=== PATIENT | female | born 1965 | race Caucasian/White ===

== ENCOUNTER 2019-12-27 17:17 | Outpatient (CLI) | payer SELFPAY ==
[2019-12-27 19:23] LABS: Estmated Average Glucose 171; Hemoglobin A1C 7.6 % (4.0-6.0)
[2019-12-27 22:55] LABS: Creatinine Urine, Random 26 mg/dL (28-217)
[2019-12-27 22:59] LABS: Microalbum Creatinine Ratio Ur 38 mg/dL (0-20); Microalbumin Random Urine 1 ug/dL (0-20)
[2019-12-28 03:40] LABS: Alanine Aminotransferase 17 U/L (0-33); Alkaline Phosphatase 75 IU/L (35-105); Anion Gap 17.2 (5-19); Aspartate Amino Transferase 16 U/L (0-32); Blood Urea Nitrogen 15 mg/dL (6-20); Calcium 9.3 mg/dL (8.5-10.5); Carbon Dioxide 25 mmol/L (22-29); Chloride 100 mmol/L (98-107); Globulin 3.1 g/dL (1.3-4.6); Glomerular Filtration Rate 104.6 mL/min (90-130); Glucose 289 mg/dL (65-115); Osmolality Calculated 293 mOsm/kg (285-295); Potassium 4.2 mmol/L (3.5-5.1); Sodium 138 mmol/L (136-145); Total Bilirubin 0.3 mg/dL (0.15-1.2); Total Protein 7.1 g/dL (6.6-8.7)
== END 2019-12-27 17:18 | disposition home or self-care (01) ==
PROVIDERS: Visit Provider General Practice
DX: E11.9 Type 2 diabetes mellitus without complications (principal)
CPT/HCPCS: 80053; 82044; 83036

== ENCOUNTER 2020-02-29 14:58 | Outpatient (CLI) | payer OTHER, SELFPAY ==
--- NOTE | 2020-02-29 15:09 | MM_ITS ---
WS: [id number] BILATERAL DIGITAL SCREENING MAMMOGRAPHY WITH CAD CLINICAL INFORMATION: SCREEN HISTORY: Screening mammogram. No current complaints. COMPARISON: None. TECHNIQUE: Bilateral CC and MLO views. FINDINGS: Scattered fibroglandular densities bilaterally. No suspicious focal mass, asymmetry, calcifications, or architectural distortion. No evidence of malignancy. Dystrophic calcifications. Lucent centered ca lcifications. MM/[place] [address] IMPRESSION: BI-RADS: 2-Benign FOLLOW UP: 1 Year Follow-up Recommend return to annual screening mammography.
== END 2020-02-29 14:59 | disposition home or self-care (01) ==
LOC: RADSHAW 15:05
DX: Z12.31 Encounter for screening mammogram for malignant neoplasm of breast (principal)
CPT/HCPCS: 77067

== ENCOUNTER 2020-05-27 10:15 | Outpatient (CLI) | payer OTHER, SELFPAY ==
--- NOTE | 2020-05-27 10:21 | XR_ITS ---
WS: [id number] LUMBAR SPINE: 3 VIEWS TECHNIQUE: AP, lateral and L5-S1 spot. HISTORY: LOW BACK PAIN COMPARISON: 04/14/2010 Very minimal LEFT convex curvature lumbar spine. Mild straightening of the posterior alignment. 1 to 2 mm retrolisthesis of L1-L4. Mild disc space narrowing and small endplate osteophytes at all levels. Mild facet joint arthritis at L4-5 and L5-S1. SI joints are symmetric bilaterally. No soft tissue abnormalities. Bilateral tubal ligation clips. XR/XR lumbar spine 2-3V* [id number] IMPRESSION: Mild multilevel spondylosis. No fractures.
--- NOTE | 2020-05-27 10:22 | XR_ITS ---
WS: [id number] RIGHT KNEE: 2 VIEW(S) TECHNIQUE: AP and lateral. HISTORY: RIGHT KNEE PAIN COMPARISON: None available. Lateral radiograph is rotated. Moderate to severe narrowing of the lateral compartment. Mild narrowin g of the medial and patellofemoral joint spaces. Hypertrophic osteophytes from the lateral joint line . There is also mild valgus deformity. Small suprapatellar effusion. No soft tissue abnormality. XR/XR knee RT 1-2V [id number] IMPRESSION: 1. Moderate to severe lateral compartment osteoarthritis. 2. Mild medial and patellofemoral joint arthritis.
== END 2020-05-27 10:16 | disposition home or self-care (01) ==
LOC: RAD 10:17
PROVIDERS: Visit Provider Dermatology
DX: M17.11 Unilateral primary osteoarthritis, right knee (principal); M47.816 Spondylosis without myelopathy or radiculopathy, lumbar region
CPT/HCPCS: 72100; 73560

== ENCOUNTER → 2020-07-16 17:13 | Outpatient (BNVA) | payer SELFPAY | PROVIDERS: Visit Provider Obstetrics & Gynecology | DX: Z01.812 Encounter for preprocedural laboratory examination (principal); N81.10 Cystocele, unspecified | CPT/HCPCS: 87635 ==

== ENCOUNTER → 2020-09-10 09:27 | Outpatient (BNVA) | payer SELFPAY | PROVIDERS: Visit Provider Obstetrics & Gynecology | DX: Z20.822 Contact with and (suspected) exposure to COVID-19 (principal); N81.2 Incomplete uterovaginal prolapse | CPT/HCPCS: 87635 ==

== ENCOUNTER 2020-09-16 10:50 | Observation (INO) | payer SELFPAY ==
[2020-09-12 11:56] VITALS: BMI 40.3
[2020-09-16] VITALS (14 sets, daily range): BP systolic 94–126; BP diastolic 55–84; PULSE 73–100; RESP 12–94; TEMP 36.3–37.3; O2SAT 82–100
[2020-09-16] MEDS: sodium chloride 0.9% 1,000 ML 30 ML IV (06:30)
--- NOTE | 2020-09-16 06:45 | P.HPUD_ITS ---
Surgery/Procedure H&P Update DATE OF PROCEDURE: September 16, 2020 DATE H&P PERFORMED: 09/10/20 H&P UPDATE INFORMATION: I have reviewed H&P completed within last 30 days, I have examined patient prior to procedure, No changes to prior documentation and H&P is in [facility] EMR on date indicated PREOP DIAGNOSIS: Uterovaginal prolapse PLANNED PROCEDURE: Operation Date: 09/16/20 07:00 Proposed Procedures p Total Vaginal Hysterectomy 54876 [id number] N81.10(Not Applicable) - Bruce Moeller MD s Salpingo-Oophorectomy (Vaginal)(Not Applicable) - Bruce Moeller MD s Sling(Not Applicable) - MD fredy Cr Ureterosacral Ligament Suspension(Not Applicable) - MD fredy Cr poss Anterior Repair Anterior Colporrhaphy(Not Applicable) - MD fredy Cr Posterior Repair Posterior Colporrhaphy(Not Applicable) - Bruce Moeller MD
[2020-09-16] MEDS: heparin 5,000 unit/mL INJ 1 mL 5000 UNIT SUBCUT ×2 (06:48→20:05)
--- NOTE | 2020-09-16 06:58 | P.ANESASSM_ITS ---
Pre-Anesthetic Assessment Pre-Anesthetic Assessment: Height/Weight: Height 1.68 m Weight 113.398 kg Temp Pulse Resp BP Pulse Ox 98.5 F 88 18 126/84 97 09/16/20 06:18 09/16/20 06:18 09/16/20 06:18 09/16/20 06:18 09/16/20 06:18 Preop Diagnosis: Uterovaginal prolapse Proposed Procedure: Operation Date: 09/16/20 07:00 Proposed Procedures p Total Vaginal Hysterectomy 09108 [id number] N81.10(Not Applicable) - MD fredy Cr Salpingo-Oophorectomy (Vaginal)(Not Applicable) - MD fredy Cr Sling(Not Applicable) - MD fredy Cr Ureterosacral Ligament Suspension(Not Applicable) - MD fredy Cr poss Anterior Repair Anterior Colporrhaphy(Not Applicable) - MD fredy Cr Posterior Repair Posterior Colporrhaphy(Not Applicable) - Bruce Moeller MD Familial anesthetic complications: none Was Beta Terry taken within 24 hours: N/A Was Clonidine taken within 24 hours: N/A Last intake: Intake Last Liquid Date 09/15/20 Last Liquid Time 22:00 Last Solid Date 09/15/20 Last Solid Time 21:00 Social: Social History: No alcohol and No tobacco Exam: Pre-Anes Outpt Exam: alert, oriented x 3, clear to auscultation bilaterally and regular rate & rhythm Airway: Cervical ROM: WNL MP: 3 Dentition: Other (poor dentition) CV/HEM: CV/HEM: HTN Comments: hx of PE, unknown etiology, on lovenox Metabolic: Metabolic: DM and Morbid obesity Anesthetic Plan: ASA status: 3 Anesthesia: General Risk of > 500 ml blood loss (7ml/kg in children): No PFSH Anesthesia PFSH: Medical History Diabetes Diagnosed in 2008 and controlled with medications. History of pulmonary embolism Had a PE in 2016-no known cause and has been on Xarelto since then. This is being managed by her primary care provider Hypertension Diagnosed in 2008 and symptoms are being managed by a primary care provider. No pertinent past medical history Denies asthma, seizures, DVT. PMD: Follows with the [facility] Surgical History Hx of tubal ligation (~2005) Done after the of her last child. Family History Mother Diabetes Heart disease Hypercholesteremia Hypertension Sister Diabetes Hypercholesteremia Hypertension Brother Diabetes Father Heart disease Denies family history of Colon cancer Ovarian cancer Breast cancer Uterine cancer Stroke Social History Additional social history: - Tobacco use: socially Alcohol use: socially Drug use: denies Data Anesthesia Cardiac Studies: No Data to Display
[2020-09-16 07:18] LABS: Glucose Point of Care 108 mg/dL (70-110)
[2020-09-16 07:25] LABS: Basophils % 0.5 %; Eosinophils # 0.1 10^3/uL (0.0-0.8); Eosinophils % 1.1 %; Hematocrit 50.8 % (37.0-47.0); Hemoglobin 15.9 g/dL (11.5-15.3); Lymphocytes # 1.6 10^3/uL (0.8-4.8); Lymphocytes % 29.1 %; Mean Corpuscular HGB Conc 31.3 g/dL (30.0-36.0); Mean Corpuscular Hemoglobin 29.2 pg (28.0-34.0); Mean Corpuscular Volume 93.2 fL (81-99); Mean Platelet Volume 11.5 fL (7.4-10.4); Monocytes # 0.3 10^3/uL (0.2-0.9); Monocytes % 5.1 %; Nucleated Red Blood Cells % 0 %; Platelet Count 224 10^3/cmm (130-400); Red Blood Count 5.45 10^6/uL (4.1-5.3); Red Cell Distribution Width 14.3 % (12.1-15.1); White Blood Count 5.5 10^3/uL (4.0-10.0)
[2020-09-16 07:41] LABS: Alanine Aminotransferase 25 U/L (0-33); Albumin Level 4.3 g/dL (3.5-5.2); Alkaline Phosphatase 81 IU/L (35-105); Blood Urea Nitrogen 15 mg/dL (6-20); Calcium 9.6 mg/dL (8.5-10.5); Carbon Dioxide 28 mmol/L (22-29); Chloride 100 mmol/L (98-107); Globulin 3.2 g/dL (1.3-4.6); Glomerular Filtration Rate 104.2 mL/min (90-130); Glucose 108 mg/dL (65-115); Osmolality Calculated 289 mOsm/kg (285-295); Sodium 139 mmol/L (136-145); Total Bilirubin 0.5 mg/dL (0.15-1.2); Total Protein 7.5 g/dL (6.6-8.7)
[2020-09-16 07:46] LABS: Anion Gap 15.4 (5-19); Potassium 4.4 mmol/L (3.5-5.1)
[2020-09-16 07:47] LABS: Aspartate Amino Transferase 31 U/L (0-32)
[2020-09-16] MEDS: vasopressin 20 unit/mL INJ INJECTION (07:53)
--- NOTE | 2020-09-16 10:01 | P.OP_ITS ---
Operative Report Date of procedure: September 16, 2020 OPERATIVE REPORT Date of surgery:09/16/20 Date of dictation: 09/16/2020 Preoperative diagnosis: Uterovaginal prolapse Postoperative diagnosis/findings: Grade 3 cystocele and uterine prolapse, grade 1 rectocele, wide enteritis, 8 weeks size midposition uterus, mobile, nontender, normal ovaries and tubes bilaterally. Fallopian tubes bilaterally show signs of Filshie clips. Procedure done: Total vaginal hysterectomy, bilateral salpingo-oophorectomy Specimens removed/disposition of specimens: Uterus, bilateral tubes and ovaries. Surgeon: Dr. Jase Rodriguez Public Information Specialist: Lisandra Condon Anesthesia:General endotracheal tube anesthesia Estimated blood loss: 300 ml Intravenous fluids: See operative report for details of procedure Urine output: 200 ml of blue tinged urine at end of procedure Medications: As per anesthesia records Complications: None, patient was taken to the recovery room in a stable condition PROCEDURE: After consents were obtained, she was taken to the operating room where she was placed under general endotracheal tube anesthesia without any difficulty. She was placed supine on the table in lithotomy position. Her legs were placed in stirrups and care was taken to avoid pressure points. Exam under anesthesia revealed findings noted above. She was then prepped and draped in usual sterile fashion. Grady Catheter was placed. Patient's legs were raised, weighted speculum placed and cervix was grasped on the anterior and posterior lips with single-toothed tenaculum. 4 Units of Pitressin diluted in 10 mL of saline was injected around the cervix for hydrodissection circumferentially. A scalpel was used to make an incision starting posteriorly and then extending anteriorly around the cervix. Castellanos scissors was then used to separate the overlying tissue from the cervix. The overlying tissue was also pushed back bluntly using a 4 x 4 gauze. Attention was turned posteriorly where the posterior cul-de-sac was sharply entered . No lesions noted in the posterior cul-de-sac. Long weighted retractor was placed in the posterior cul-de-sac. Antoni-Steele clamps were used first on the right and then the left uterosacral ligaments. This process was repeated again proceeding up the cervix. The bladder was held up, peritoneum was identified and intraperitoneal entry anteriorly was made. A vaginal retractor was placed into the peritoneum thus protecting the bladder from site of surgery. Care was taken to stay medial. Throughout this time there was backbleeding from the uterus as it was very vascular. The remaining portions of the broad ligament were serially clamped, cut, and suture ligated with 0 Vicryl suture bilaterally until the area of the ovarian ligament and fallopian tube was reached. Once clamps were placed completely across the cornua of the uterus, this last pedicle was cut and the uterus was then removed. The pedicles were inspected and noted to be hemostatic. The ovaries and tubes were inspected and appeared normal. The IP ligament was easily visualized and no adhesions were noted. The tube showed signs of the Filshie clip. Antoni-Steele clamps were placed across the IP ligament taking care to stay as close to the uterus as possible and avoid the sidewall. This was done first on the left and then on the right side without any difficulty. The bilateral tubes and ovaries were removed and each pedicle was first suture ligated and then free tied and good hemostasis was noted bilaterally. Surgery was then turned over to Dr. Moeller who performed uterosacral ligament suspension bilaterally, posterior colporrhaphy and single incision sling. Please refer to his operative report for details of procedure. Once uterosacral ligament suspension was performed the cystocele was inspected and it was noted to be mainly a paravaginal defect and not so much a central defect and cystocele had resolved from grade 3 to grade 1-2 under anesthesia and decision was made to not perform anterior repair at this time. 1 inch vaginal packing with lubrication was placed into the vagina. A Grady catheter was kept in place. The patient was extubated without any difficulty and taken to the recovery room in a stable condition. This documentation was created by [employer] food counter attendant software (known for inherent food counter attendant error). Every effort was made to assure accuracy of food counter attendant. Any obvious errors or omissions should be clarified with the author of the document. Pre-op Diagnosis: Uterovaginal prolapse
--- NOTE | 2020-09-16 10:39 | P.OP_ITS ---
Operative Report Date of procedure: September 16, 2020 Pre-op Diagnosis: Incomplete uterovaginal prolapse Post-op Diagnosis: Incomplete uterovaginal prolapse, Urethral hypermobility Procedure Done: Intraperitoneal colpopexy, vaginal approach (uterosacral ligament suspension), Single incision suburethral sling, Perineorrhaphy, Cystoscopy Anesthesia: General Estimated blood loss (mL): 200 (Total) IV fluids (mL): 1,400 (Total) Complications: None Findings: Patient had third-degree uterine prolapse with third-degree cystocele and second-degree rectocele with deficient perineum. She also had hypermobility of the urethra. Brief History: Patient is a 55-year-old female 7, Para 6-0-1-6, LMP: 2018 (postmenopausal). She initially presented to Dr. Rodriguez due to prolapse complaints. She was diagnosed incomplete uterovaginal prolapse with second to third-degree uterine prolapse, third-degree cystocele, and first to second-degree high rectocele with hypermobility of the urethra and deficient perineum. Dr. Rodriguez had been planning on performing a total vaginal hysterectomy, bilateral salpingo- oophorectomy, and possible anterior repair with plan to coordinate repair of the rest of the prolapse with me. From my portion plan was to perform a uterosacral ligament suspension and then see if anterior and/or posterior repair would be needed. I would then also be performing a urethral sling. This has been discussed with patient she is presenting for surgery at this time. Procedure: Patient was taken to the operating room where general anesthesia was obtained. She had been prepped and draped in usual sterile fashion dorsal supine position with legs in Adelfo style stirrups. Sequential compression boots had been placed. Grady catheter was in place. Dr. Rodriguez performed a total vaginal hysterectomy with bilateral salpingo- oophorectomy. At this point she turned the case over to me. Please see her dictation regarding the hysterectomy. The cuff was open at this time. The right uterosacral ligament was identified. 0 Ethibond suture was placed high into the uterosacral ligament on the right side. I was able to apply good tension to the suture to confirm placement in the ligament. The left uterosacral ligament was identified. 0 Ethibond suture was placed high into the uterosacral ligament on the left side. I was again able to apply good tension to the suture to confirm placement in the ligament. Care had been taken not to incorporate the ureters or bowel into the suture placement. Grady catheter was removed and cystoscopy was performed. Bladder was thoroughly inspected with no masses noted. No bladder lacerations or suture material was noted within the bladder. Both ureters were noted to be effluxing urine well. Patient had been given IV indigo carmine for confirmation of ureteral functioning. Bladder was drained and Grady catheter was reinserted. The 0 Ethibond suture was incorporated into the vaginal cuff on the ipsilateral sides to the suture with one end of the suture passed through the anterior cuff and the other end of the suture through the posterior cuff. The vaginal cuff was closed in a horizontal fashion with interrupted stitches of 0 Vicryl suture. The Ethibond sutures were then tied which elevated the vaginal cuff well. The anterior vaginal wall was inspected. The cystocele had been significantly reduced to the point that it was felt that the anterior repair would not be necessary. However, due to the hypermobility of the urethra previously noted, decision was made to go ahead and proceed with the urethral sling. Under the urethra, the skin was injected with dilute Pitressin solution. An incision was made with a knife under the urethra parallel to the urethra. Edges of the skin was grasped and the skin was dissected away from the urethra directed towards the pubic rami bilaterally. Using a solyx single incision sling, the sling was passed through the periurethral tissue and directed behind the pubic rami at approximately 45 degree angle to the urethra. This was placed at the mid urethral level. On the contralateral side the sling was passed through the periurethral tissue at approximately 45 degree angle to the urethra and passed behind the pubic rami. She had adequate elevation and stabilization of the urethra with this. Grady catheter was removed and cystoscopy was performed. Both ureters were again noted to be effluxing urine and indigo carmine dye well. The sling was not present within the bladder or the urethra. Bladder was drained and Grady catheter reinserted. The vaginal mucosa was closed using 3-0 Vicryl suture in a running locking fashion. Patient had a large gaping perineum with at least a 4 finger breath with to the vaginal opening. The rectocele was essentially resolved with the vault suspension. Due to the gaping perineum, a perineorrhaphy was performed. The perineum was injected with dilute Pitressin solution. The skin at the perineum was excised. The skin edges were slightly undermined to allow good mobility of the skin over the perineum. Starting on the vaginal side, using 3-0 Vicryl suture, the skin on the vaginal side of the perineum was brought together in a running locking fashion. At the hymenal ring the suture was then held. The perineal body was then further built-up with interrupted stitches of 2-0 Vicryl suture. Using the previously held 3-0 Vicryl suture, a transition stitch was placed and the bulbocavernosus muscles were then incorporated in the stitch and tied in the midline. The superficial portion of the perineum was reapproximated using 3-0 Vicryl suture in a running fashion. Skin was reapproximated using 3-0 Vicryl suture in a subcuticular fashion. This built up the perineum well. The vaginal opening was approximately 2-1/2 fingerbreadths at the end of the procedure. Vagina was packed with 1 inch Nu Gauze. Patient tolerated procedures well. Sponge needle and instrument counts were correct. Drains: Grady catheter Postoperative status: Patient was transferred recovery room in satisfactory condition.
--- NOTE | 2020-09-16 10:55 | PC.NURSE ---
Pt to room OB 11 via gurney. Pt transferred to bed by standing and pivoting. Pt reporting left hip pain. Nurse assisted pt into bed and helped with position.
[2020-09-16] MEDS: HYDROcodone-acetaminophen 5-325 mg Tablet PO ×2 (14:17→21:08)
[2020-09-16] MEDS: dextrose 5%-lactated ringers 1,000 ML 125 ML IV (15:08)
--- NOTE | 2020-09-16 19:06 | ANE.PACU2 ---
Inpatient post-anesthesia follow up: Airway intact: Yes Vital signs: Temperature 97.7 F Pulse Rate 100 Respiratory Rate 94 Blood Pressure 126/73 Pulse Oximetry 94 Oxygen Delivery Me thod Room Air Oxygen Flow Rate 1 Fraction of Inspir ed Oxygen Hydration adequate: Yes Nausea and vomiting: No Pain level: 2 Mental status: Baseline
[2020-09-17] MEDS: dextrose 5%-lactated ringers 1,000 ML 125 ML IV (00:03)
[2020-09-17] MEDS: HYDROcodone-acetaminophen 5-325 mg Tablet PO ×3 (03:09→14:13)
[2020-09-17 04:00] VITALS: BP 90/60; PULSE 93; RESP 15; TEMP 37; O2SAT 96
[2020-09-17] MEDS: heparin 5,000 unit/mL INJ 1 mL 5000 UNIT SUBCUT ×2 (04:05→12:11)
--- NOTE | 2020-09-17 05:00 | PC.NURSE ---
Vaginal packing removed per physician's order. Tolerated well.
[2020-09-17 05:20] LABS: Hematocrit 39.6 % (37.0-47.0); Hemoglobin 12.3 g/dL (11.5-15.3); Mean Corpuscular HGB Conc 31.1 g/dL (30.0-36.0); Mean Corpuscular Volume 93.4 fL (81-99); Mean Platelet Volume 10.8 fL (7.4-10.4); Platelet Count 187 10^3/cmm (130-400); Red Blood Count 4.24 10^6/uL (4.1-5.3); Red Cell Distribution Width 14.4 % (12.1-15.1); White Blood Count 6.1 10^3/uL (4.0-10.0)
--- NOTE | 2020-09-17 05:50 | PC.NURSE ---
Physician at bedside explaining surgery and answering uestions.
--- NOTE | 2020-09-17 07:45 | PC.NURSE ---
This nurse helped pt out of bed at this time to ambulate with pt. Pt was able to get out of bed on her own. Pt reports her pain 5. Pt ambulated from room 11 to room 9 and turned around and went back to her room. Pt reported she felt like she was having a hard time breathing. This nurse instructed pt she could pull her mask down if she needed to. Pt went back into room and wanted to try to void again, but was unsuccessful. This nurse discussed with pt that when Dr. Rodriguez told her she needed to walk 10 laps, Dr. Rodriguez meant 10 laps around the unit. Pt decided she would ambulate again and this nurse showed her where she could ambulate in the [place]. This nurse educated pt to take her time and that she didn't have to do all 10 laps at one time. Pt verbalized understanding.
--- NOTE | 2020-09-17 08:25 | PC.NURSE ---
Call to Dr. Rodriguez to report that pt IV is infiltrated. Pt has voided once 200 mL and her post void residual was 140 mL. Pt tolerated her full liquid diet well. Reported the discussed with pt about walking 10 laps around nurses station. Dr. Rodriguez reported pt does not have to have a new IV placed. Dr. Rodriguez gave orders to do 2 more PVR, and encourage pt to ambulate. If pt needs to do one lap an hour, that would be acceptable.
[2020-09-17] MEDS: docusate sodium 100 mg Capsule PO (09:13)
[2020-09-17 09:18] VITALS: BP 94/62; PULSE 92; RESP 16; TEMP 36.8; O2SAT 96
[2020-09-17 10:21] LABS: Glucose Point of Care 141 mg/dL (70-110)
[2020-09-17] MEDS: simethicone 80 mg Chew PO (11:48)
[2020-09-17] MEDS: ibuprofen 800 mg tablet PO (11:48)
--- NOTE | 2020-09-17 11:53 | PC.NURSE ---
Call to Dr. Rodriguez to report last two PVRs. Pt voided 400mL and had 200mL residual, and pt voided 800mL and had 60mL residual. Pt has ambulated 3 laps around the nurses station. Pt did pass gas this morning but reports It was hardly anything . Received order to measure one more PVR and call with an update at 1600.
[2020-09-17 15:18] LABS: Glucose Point of Care 156 mg/dL (70-110)
--- NOTE | 2020-09-17 16:59 | PC.NURSE ---
Dr. Rodriguez called at this time for an update on pt. This nurse reported that pt voided another 600mL with a PVR of 50mL. Pt has walked 10 laps around the nurses station and pt has passed more gas and is tolerating regular diet well. Dr. Rodriguez reported she would be putting in discharge orders in. Dr. Rodriguez would like the pt to be educated to get up and try to void every 3 hours for the first 48 hours at home.
--- NOTE | 2020-09-17 17:12 | P.DS_ITS ---
Discharge Providers Date of Admission: 09/16/20 10:50 Date of Discharge: September 17, 2020 Attending Provider at Admission: Jase Basurto MD Attending Provider at Discharge: Jase Basurto MD Diagnosis at admission: Grade 3 uterovaginal prolapse Diabetes Chronic hypertension History of pulmonary embolism on blood thinners Diagnosis at discharge Status post surgery on 09/16/2020--vaginal hysterectomy, bilateral salpingo- oophorectomy, uterosacral ligament suspension, suburethral sling placement, perineorrhaphy. Diabetes Chronic hypertension History of pulmonary embolism on heparin in the hospital transitioned back to Located Within [facility] course: Patient presented on 09/16/2020 for scheduled surgery. She had no new complaints. She last taken Lovenox the day before surgery. She had no questions or concerns. She underwent an uncomplicated surgery as documented above. She did well on postoperative day 0 and was ambulating well, tolerating clear liquid diet. Pain was well-controlled with by mouth and IV pain medication. She denied nausea, vomiting, fever, chills, shortness of breath, leg pain. She had minimal vaginal bleeding. Grady catheter was kept overnight and she had adequate urine output. On postoperative day #1 she continued to do well with stable vital signs and stable hemoglobin at 12. Grady catheter was removed and patient was able to void with minimal residual noted on bladder scan. She ambulated well started passing flatus and then tolerated a regular diet. She was discharged home on postoperative day #1 in a stable condition. Warning signs for wound infection, cuff infection, DVT/PE were reviewed with her. Post surgical activity restrictions were also reviewed with her at all her questions were answered to her satisfaction. This documentation was created by [employer] electrical assembler software (known for inherent electrical assembler error). Every effort was made to assure accuracy of electrical assembler. Any obvious errors or omissions should be clarified with the author of the document. Reason for Visit Reason for Visit: vaginal prolapse Physical Exam Urinary Catheter Management^: Grady: Cath Placed During This Visit: yes Urinary Catheter Date of Insertion: 09/16/20 Urinary Catheter Time of Insertion: 07:36 Discharge Data Data Completed and Pending: Pending at discharge Category Date Time Status Pathology: Surgic al [PTH] Routine Pth 09/16/20 11:44 Received Labs from last 24 hours 09/17/20 09/17/20 09/17/20 15:12 10:17 05:12 WBC 6.1 RBC 4.24 Hgb 12.3 Hct 39.6 MCV 93.4 MCH 29.0 MCHC 31.1 RDW 14.4 Plt Count 187 MPV 10.8 H POC Glucose 156 H 141 H Vitals: Last Vital Signs Temp 98.3 F 09/17/20 09:18 Pulse 92 09/17/20 09:18 Resp 16 09/17/20 09:18 BP 94/62 09/17/20 09:18 Pulse Ox 96 09/17/20 09:18 Discharge Plan Discharge Patient Disposition: Home Condition: Stable Prescriptions: New hydrocodone-acetaminophen 5-325 mg tablet 1 tab PO Q6H Qty: 25 RF: 0 docusate sodium 100 mg Capsule 100 mg PO BID PRN (Reason: constipation) Qty: 30 RF: 0 Continued metformin 1,000 mg tablet 1,000 mg PO BID RF: 0 Januvia 100 mg tablet 100 mg PO DAILY RF: 0 Invokana 300 mg tablet 300 mg PO DAILY RF: 0 lisinopril 5 mg tablet 5 mg PO DAILY RF: 0 Xarelto 20 mg tablet 20 mg PO DAILY RF: 0 naproxen sodium [Aleve] 220 mg capsule 220 mg PO BID PRN (Reason: Pain) RF: 0 acetaminophen [Tylenol] 325 mg tablet 325 mg PO QID PRN (Reason: Pain) RF: 0 glucosamine HCl 500 mg tablet 500 mg PO ONCE RF: 0 omega-3 fatty acids [Fish Oil Concentrate] 1,000 mg capsule 1,000 mg PO DAILY RF: 0 magnesium oxide 400 mg (241.3 mg magnesium) tablet 400 mg PO BID RF: 0 ascorbate calcium (vitamin C) 500 mg tablet 500 mg PO DAILY RF: 0 Bydureon 2 mg/0.65 mL pen injector 2 mg SUBCUT Q7D RF: 0 aspirin 81 mg Tablet 81 mg PO DAILY RF: 0 enoxaparin [Lovenox] 40 mg/0.4 mL Syringe 40 mg SUBCUT Q12H RF: 0 potassium 99 mg Tablet PO DAILY RF: 0 Discharge Orders: Discharge Order (Routine); Ordered 09/17/20 Ordered By: Jase Basurto Referrals: Jase Basurto MD [Physician] - 09/29/20 3:00 pm (* Your incision check is on 09/29/2020 at 3:00pm * Your follow up appointment is on 10/27/2020 at 2:45pm.) Patient Instructions: Vaginal Hysterectomy (DC), Bladder Sling Procedures (DC), OB Abdominal Surgery - [facility], OB Discharge Report, OB Food/Drug Interaction Guide Activity Restrictions/Additional Instructions: Pelvic rest for 6 weeks, no heavy lifting for 6 weeks. For the first 48 hours, get up and try to urinate every three hours, whether you feel like you need to go or not. This will prevent your bladder from getting too full and not emptying completely. Discharge Attestations Time Spent in Discharge Care*: greater than 30 min Quality Metrics Clinical Quality Measures During this hospital stay, did patient experience: None Coding Level of Care Code Acute Chg FW DC note
--- NOTE | 2020-09-17 18:07 | PC.NURSE ---
Call to Dr. Rodriguez to verify order. Order was to continue taking lovenox and continue taking xarelto. Dr. Rodriguez reported that was a mistake and she did not want pt to continue taking lovenox.
[2020-09-17 18:15] VITALS: BP 128/81; PULSE 85; RESP 16; TEMP 36.7; O2SAT 97
== END 2020-09-17 18:30 | disposition home or self-care (01) ==
LOC: OBGYN 10:51
PROVIDERS: Obstetrics & Gynecology; Admitting Provider Obstetrics & Gynecology; Visit Provider Obstetrics & Gynecology
PROC: (CPT 57260; principal; 2020-09-16 07:00)
PROC: (CPT 58720; 2020-09-16 07:00)
PROC: (CPT 57288; 2020-09-16 07:00)
PROC: (CPT 57283; 2020-09-16 07:00)
PROC: 0TJB8ZZ Inspection of Bladder, Via Natural or Artificial Opening Endoscopic (ICD-10-PCS; CPT 52000; 2020-09-16 07:00)
PROC: 0HQ9XZZ Repair Perineum Skin, External Approach (ICD-10-PCS; CPT 57260; 2020-09-16 07:00)
DX: N81.3 Complete uterovaginal prolapse (principal); I10 Essential (primary) hypertension; Z86.711 Personal history of pulmonary embolism; E11.9 Type 2 diabetes mellitus without complications; E66.01 Morbid (severe) obesity due to excess calories; Z68.41 Body mass index [BMI] 40.0-44.9, adult
CPT/HCPCS: 57260; 57283; 57288; 58262; 36415; 36416; 51798; 80053; 82962; 85025; 85027; 86850; 86900; 88305; 96365; 96372; C1771; G0378; J0690; J1100; J1170; J1200; J1644; J2405; J2704; J3010; J3490; J7030

== ENCOUNTER → 2020-10-23 00:01 | Outpatient (BNVA) | payer SELFPAY | PROVIDERS: Visit Provider Obstetrics & Gynecology | DX: R33.9 Retention of urine, unspecified (principal) | CPT/HCPCS: 87086 ==

== ENCOUNTER → 2021-02-25 09:09 | Outpatient (BNVA) | payer SELFPAY | PROVIDERS: Visit Provider Obstetrics & Gynecology | DX: R39.15 Urgency of urination (principal); R30.0 Dysuria | CPT/HCPCS: 81000; 87086 ==

== ENCOUNTER → 2021-09-24 11:35 | Outpatient (BNVA) | payer MEDICAID, SELFPAY | PROVIDERS: PCP Family Medicine; Visit Provider Family Medicine | DX: N39.3 Stress incontinence (female) (male) (principal); E11.9 Type 2 diabetes mellitus without complications; R33.9 Retention of urine, unspecified; M17.11 Unilateral primary osteoarthritis, right knee | CPT/HCPCS: 81000 ==

== ENCOUNTER 2021-09-30 10:25 | Outpatient (CLI) | payer MEDICAID, SELFPAY ==
--- NOTE | 2021-09-30 10:30 | MM_ITS ---
WS: [id number] BILATERAL SCREENING 3D TOMOSYNTHESIS DIGITAL MAMMOGRAM WITH CAD HISTORY: SCREEN COMPARISON: 02/29/2020 and 11/12/2016 Bilateral CC and MLO views submitted. Computer aided detection analyzed. Breast composition: There are scattered areas of fibroglandular density. No suspicious masses, microc alcifications or architectural distortion. Benign scattered calcifications in each breast. MM/[place] [id number] IMPRESSION: BI-RADS: 2-Benign FOLLOW UP: 1 Year Follow-up
== END 2021-09-30 10:26 | disposition home or self-care (01) ==
LOC: RAD 10:27
PROVIDERS: PCP Family Medicine; Visit Provider Family Medicine
DX: Z12.31 Encounter for screening mammogram for malignant neoplasm of breast (principal)
CPT/HCPCS: 77063; 77067

== ENCOUNTER 2021-10-07 07:44 | Day surgery (SDC) | payer MEDICAID, SELFPAY ==
[2021-10-05 13:28] VITALS: BMI 40.3
--- NOTE | 2021-10-07 08:56 | P.HP_ITS ---
Same Day Surgery H&P Indication for Procedure/HPI DATE OF PROCEDURE: October 07, 2021 CHIEF COMPLAINT/INDICATIONFOR SURGICAL PROCEDURE: screening PREOP DIAGNOSIS: diagnostic PLANNED PROCEDURE: Operation Date: 10/07/21 09:30 Proposed Procedures p Colonoscopy 20578/z12.11(Not Applicable) - Crispin Hernandez MD Medications/Allergies* Home Medications Medication Instructions Recorded Confirmed Type ascorbate calcium (vitamin C) 500 500 mg PO DAILY 05/21/20 10/07/21 History mg tablet canagliflozin 300 mg tablet 300 mg PO DAILY 05/21/20 10/07/21 History (Invokana) glucosamine HCl 500 mg tablet 500 mg PO DAILY tab 05/21/20 10/07/21 History lisinopril 5 mg tablet 5 mg PO DAILY 05/21/20 10/07/21 History omega-3 fatty acids 1,000 mg 1,000 mg PO DAILY 05/21/20 10/07/21 History capsule (Fish Oil Concentrate) rivaroxaban 20 mg tablet (Xarelto) 20 mg PO DAILY 05/21/20 10/07/21 History sitagliptin 100 mg tablet (Januvia) 100 mg PO DAILY 05/21/20 10/07/21 History exenatide microspheres 2 mg/0.65 2 mg SUBCUT Q7D 07/04/20 10/07/21 History mL subcutaneous pen injector (Bydureon) aspirin 81 mg tablet 81 mg PO DAILY 07/14/20 10/07/21 History potassium 99 mg tablet 99 mg PO DAILY 09/16/20 10/07/21 History magnesium oxide 400 mg (241.3 mg 800 mg PO DAILY tab 11/10/20 10/07/21 History magnesium) tablet cyanocobalamin (vitamin B-12) 50 500 mcg PO DAILY 08/20/21 10/07/21 History mcg tablet (Vitamin B-12) zinc 50 mg tablet 50 mg PO DAILY 08/20/21 10/07/21 History Allergies/Adverse Reactions Allergy/AdvReac Type Severity Reaction Status Date / Time Penicillins Allergy unknown Verified 10/07/21 08:24 reaction--mother told her she was allergic Pertinent History/Comorbid Conditions* Medical History (Updated 09/24/21 @ 11:43 by Remedios Russ DO) Diabetes Diagnosed in 2008 and controlled with medications. History of pulmonary embolism Had a PE in 2016-no known cause and has been on Xarelto since then. This is being managed by her primary care provider. Saddle embolism. Hypertension Diagnosed in 2008 and symptoms are being managed by a primary care provider. Surgical History (Updated 10/24/20 @ 19:44 by Bruce Moeller MD) Hx of tubal ligation (~2005) Done after the of her last child. Status post hysterectomy (09/16/20) TVH, BSO, USLS, SIS sling, perineorrhaphy. Performed by Dr. Rodriguez and Dr. Moeller at [facility] in [place], [place]. Family History (Updated 05/21/20 @ 09:12 by Domitila Christianson) Diabetes Mother Sister Brother Heart disease Mother Father Hypercholesteremia Mother Sister Hypertension Mother Sister Denies family history of Colon cancer Ovarian cancer Breast cancer Uterine cancer Stroke Social History Smoking and tobacco status: never smoked Alcohol intake: current Alcohol intake frequency: holidays/special occasions only Pertinent Exam Findings alert, oriented x 3 and regular rate & rhythm Recommendations Surgery/Procedure today Coding Level of Care Code Acute Director Employee Communications for Tobin Álvarez
[2021-10-07 08:58] VITALS: BP 146/83; PULSE 75; RESP 16; TEMP 36.5; O2SAT 97
[2021-10-07] MEDS: sodium chloride 0.9% 1,000 ML 30 ML IV (09:02)
--- NOTE | 2021-10-07 09:12 | ANES.PREANE2 ---
Documented by User: El Street Jr, TRIAGE NURSE 10/07/21 09:15 Pre-Anesthetic Assessment Height/Weight: Height 1.68 m Weight 113.398 kg Temp Pulse Resp BP Pulse Ox 97.7 F 75 16 146/83 97 10/07/21 08:58 10/07/21 08:58 10/07/21 08:58 10/07/21 08:58 10/07/21 08:58 Preop Diagnosis: diagnostic Operation Date: 10/07/21 09:30 Proposed Procedures p Colonoscopy 80958/z12.11(Not Applicable) - Crispin Hernandez MD Was Beta Terry taken within 24 hours: N/A Was Clonidine taken within 24 hours: N/A Last intake: Intake Last Liquid Date 10/06/21 Last Liquid Time 21:00 Last Solid Date 10/05/21 Last Solid Time 18:30 Social No alcohol and No tobacco Exam alert, oriented x 3, clear to auscultation bilaterally and regular rate & rhythm Airway Submandibular: within normal limits Cervical ROM: within normal limits Mallampati: Class II Dentition: loose Comments: Comments: several missing History/ROS No significant history except as noted and No significant complaints Pulmonary Hx PE CV/HEM Hypertension None reported Hepatic None reported GI None reported Metabolic Diabetes Mellitus [facility] None reported Neuropsych None reported Anesthetic Plan ASA status: 3 Anesthesia: MAC Risk of > 500 ml blood loss (7ml/kg in children): No Medications/Allergies Home Medications Medication Instructions Recorded Confirmed Last Taken Type ascorbate calcium (vitamin C) 500 500 mg PO DAILY 05/21/20 10/07/21 10/06/21 History mg tablet canagliflozin 300 mg tablet 300 mg PO DAILY 05/21/20 10/07/21 10/06/21 History (Invokana) glucosamine HCl 500 mg tablet 500 mg PO DAILY tab 05/21/20 10/07/21 10/06/21 History lisinopril 5 mg tablet 5 mg PO DAILY 05/21/20 10/07/21 10/06/21 History omega-3 fatty acids 1,000 mg 1,000 mg PO DAILY 05/21/20 10/07/21 10/05/21 History capsule (Fish Oil Concentrate) rivaroxaban 20 mg tablet (Xarelto) 20 mg PO DAILY 05/21/20 10/07/21 10/04/21 History sitagliptin 100 mg tablet (Januvia) 100 mg PO DAILY 05/21/20 10/07/21 10/05/21 History exenatide microspheres 2 mg/0.65 2 mg SUBCUT Q7D 07/04/20 10/07/21 10/04/21 History mL subcutaneous pen injector (Bydureon) aspirin 81 mg tablet 81 mg PO DAILY 07/14/20 10/07/21 10/05/21 History potassium 99 mg tablet 99 mg PO DAILY 09/16/20 10/07/21 10/06/21 History magnesium oxide 400 mg (241.3 mg 800 mg PO DAILY tab 11/10/20 10/07/21 10/06/21 History magnesium) tablet cyanocobalamin (vitamin B-12) 50 500 mcg PO DAILY 08/20/21 10/07/21 10/06/21 History mcg tablet (Vitamin B-12) zinc 50 mg tablet 50 mg PO DAILY 08/20/21 10/07/21 10/06/21 History diclofenac sodium 3 % topical gel 1 applic TOPICAL BID #100 g 09/24/21 10/07/21 Unknown Rx insulin detemir U-100 100 unit/mL 10 unit (0.1 mL) SUBCUT DAILY #15 09/24/21 10/07/21 10/06/21 Rx (3 mL) subcutaneous pen (Levemir ml FlexTouch U-100 Insulin) oxybutynin chloride 5 mg tablet 10 mg PO BID #120 tab 09/29/21 10/07/21 10/06/21 Rx Allergies Allergy/AdvReac Type Severity Reaction Status Date / Time Penicillins Allergy unknown Verified 10/07/21 08:24 reaction--mother told her she was allergic Current Medications Generic Name Dose Route Start Last Admin Trade Name Freq PRN Reason Stop Dose Admin Sodium Chloride 1,000 mls @ 30 mls/hr 10/07/21 08:15 10/07/21 09:02 Sodium Chloride 0.9% IV 10/08/21 08:14 30 mls/hr .Q24H JUSTYNA Administration PFSH Anesthesia Medical History (Updated 09/24/21 @ 11:43 by Remedios Russ DO) Diabetes Diagnosed in 2008 and controlled with medications. History of pulmonary embolism Had a PE in 2016-no known cause and has been on Xarelto since then. This is being managed by her primary care provider. Saddle embolism. Hypertension Diagnosed in 2008 and symptoms are being managed by a primary care provider. Surgical History (Updated 10/07/21 @ 09:40 by Crispin Hernandez MD) Hx of tubal ligation (~2005) Done after the of her last child. Status post colonoscopy (10/07/21) Status post hysterectomy (09/16/20) TVH, BSO, USLS, SIS sling, perineorrhaphy. Performed by Dr. Rodriguez and Dr. Moeller at [facility] in [place], [place]. Family History Mother Diabetes Heart disease Hypercholesteremia Hypertension Sister Diabetes Hypercholesteremia Hypertension Brother Diabetes Father Heart disease Denies family history of Colon cancer Ovarian cancer Breast cancer Uterine cancer Stroke Social History Smoking and tobacco status: never smoked Alcohol intake: current Alcohol intake frequency: holidays/special occasions only Data Anesthesia Cardiac Studies: No Data to Display
[2021-10-07 09:50] VITALS: BP 98/65; PULSE 78; RESP 20; TEMP 36.1; O2SAT 96
[2021-10-07 10:03] VITALS: BP 99/65; PULSE 80; RESP 18; O2SAT 97
--- NOTE | 2021-10-07 17:41 | ANE.PACU2 ---
Inpatient post-anesthesia follow up: Airway intact: Yes Vital signs: Temperature 97 F Pulse Rate 80 Respiratory Rate 18 Blood Pressure 99/65 Pulse Oximetry 97 Oxygen Delivery Me thod Room Air Oxygen Flow Rate Fraction of Inspir ed Oxygen Hydration adequate: Yes Nausea and vomiting: No Pain level: 1 Mental status: Baseline
== END 2021-10-07 10:20 | disposition home or self-care (01) ==
PROVIDERS: PCP Family Medicine; Visit Provider Surgery
PROC: 0DJD8ZZ Inspection of Lower Intestinal Tract, Via Natural or Artificial Opening Endoscopic (ICD-10-PCS; CPT 45378; principal; 2021-10-07 09:30)
DX: Z12.11 Encounter for screening for malignant neoplasm of colon (principal); K57.30 Diverticulosis of large intestine without perforation or abscess without bleeding; E11.9 Type 2 diabetes mellitus without complications; Z79.4 Long term (current) use of insulin; Z79.82 Long term (current) use of aspirin; Z86.711 Personal history of pulmonary embolism; I10 Essential (primary) hypertension; Z82.49 Family history of ischemic heart disease and other diseases of the circulatory system; Z83.3 Family history of diabetes mellitus
CPT/HCPCS: 45378; J2704; J7030

== ENCOUNTER → 2021-11-19 12:21 | Outpatient (BNVA) | payer MEDICAID, SELFPAY | PROVIDERS: PCP Family Medicine; Visit Provider Family Medicine | DX: E11.9 Type 2 diabetes mellitus without complications (principal); Z79.4 Long term (current) use of insulin; H69.81 Other specified disorders of Eustachian tube, right ear | CPT/HCPCS: 80053; 80061; 82043; 85025 ==

== ENCOUNTER → 2021-11-20 03:00 | Outpatient (BNVA) | payer MEDICAID, SELFPAY | PROVIDERS: PCP Family Medicine; Visit Provider Family Medicine | DX: E11.9 Type 2 diabetes mellitus without complications (principal); Z79.4 Long term (current) use of insulin; H69.81 Other specified disorders of Eustachian tube, right ear | CPT/HCPCS: 83036 ==

== ENCOUNTER → 2021-12-16 08:45 | Outpatient (BNVA) | payer MEDICAID, SELFPAY | PROVIDERS: PCP Family Medicine; Visit Provider Nurse Practitioner Family | DX: N39.41 Urge incontinence (principal); N39.3 Stress incontinence (female) (male) | CPT/HCPCS: 51798; 81003; 99203 ==

== ENCOUNTER → 2022-02-19 11:30 | Outpatient (BNVA) | payer MEDICAID, SELFPAY | PROVIDERS: PCP Family Medicine; Visit Provider Family Medicine | DX: E11.9 Type 2 diabetes mellitus without complications (principal); Z79.4 Long term (current) use of insulin; I10 Essential (primary) hypertension; Z86.711 Personal history of pulmonary embolism; B35.1 Tinea unguium | CPT/HCPCS: 80053; 83036 ==

== ENCOUNTER → 2022-04-12 14:48 | Outpatient (BNVA) | payer MEDICAID, SELFPAY | PROVIDERS: PCP Family Medicine; Visit Provider Family Medicine | DX: E11.9 Type 2 diabetes mellitus without complications (principal) | CPT/HCPCS: 80053 ==

== ENCOUNTER 2022-06-26 06:53 | Emergency (ER) | payer BC, MEDICAID, SELFPAY ==
--- NOTE | 2022-06-26 07:00 | ECG_ITS ---
[facility] Test Date: 2022-06-26 Pat Name: Chirstine Hutton Department: Room: Gender: Female Recovery Agent: : 1965 Requested By: Wilber Park Order Number: [id number] Lore MD: Suzi Elizabeth M.D. Measurements Intervals [place] Rate: 73 P: 56 UT: 129 QRS: 44 QRSD: 93 T: 42 QT: 359 QTc: 396 Interpretive Statements SINUS RHYTHM LOW QRS VOLTAGE IN PRECORDIAL LEADS [QRS DEFLECTION < 1.0 mV IN CHEST LEADS] No previous ECG available for comparison Electronically Signed On 06-27-2022 20:12:41 HEDIS REGISTERED NURSE RN by Suzi Elizabeth M.D. [id number]
[2022-06-26 07:01] VITALS: BP 137/68; PULSE 79; RESP 16; TEMP 36.4; O2SAT 97; BMI 39.5
--- NOTE | 2022-06-26 07:21 | XRR_ITS ---
PROCEDURE INFORMATION: Exam: XR Chest Exam date and time: 06/26/2022 7:33 AM Age: 56 years old Clinical indication: Pain; Chest pressure; Additional info: Chest pain TECHNIQUE: Imaging protocol: Radiologic exam of the chest. Views: 1 view. COMPARISON: No relevant prior studies available. FINDINGS: Lungs: The lung parenchyma is clear. Pleural spaces: No pneumothorax. No pleural effusion. Heart/Mediastinum: The cardiomediastinal silhouette is within normal limits. Bones/joints: Unremarkable. XR/XR chest 1V portable [id number] IMPRESSION: No acute cardiopulmonary abnormality.
--- NOTE | 2022-06-26 07:29 | ED_ITS ---
HPI - Chest Pain General: Chief Complaint: Chest Pain Stated Complaint: chest pain Time Seen by Provider: 06/26/22 07:20 Source: patient Mode of arrival: ambulatory History of Present Illness: 56-year-old female who presents to the emergency room with complaints of intermittent chest pain for the last month she had an episode this morning of chest pain that lasted approximately 30 seconds at a time she was preparing coffee. She states felt like a tight spasm-like sensation in her chest and epigastric area briefly made her feel like it was difficult to take a full breath but she was never really short of breath. No nausea vomiting or diarrhea no diaphoresis. She has not had any productive cough no fever sweats or chills. Few weeks ago she had a similar sensation that was very brief she was not doing anything exertional at the time. She has not noticed anything that exacerbates or relieves the symptoms. Other than a PE she has never had any kind of cardiac or respiratory problems in the past. She is still taking Xarelto. She has no pain at this time. MD complaint: chest pain Onset (ago): minute(s) Timing of current episode: episodic Prior episodes: Yes Onset: during rest Pain location: substernal Pain radiation: other (Epigastric) Severity: mild Quality: sharp Relieving factors: nothing Exacerbating factors: nothing Context: history of DVT/PE Associated symptoms: Reports nausea; Deny abdominal pain, diaphoresis, dyspnea, fever(s), leg edema, palpitations, sense of impending doom, syncope or vomiting Treatment prior to arrival: none Review of Systems Const: Denies: fever(s), chills, fatigue, malaise or diaphoresis ENMT: Denies: throat pain, ear or mastoid pain, nasal discharge or nasal congestion Card: Reports: chest pain; Denies: palpitations, irregular heart rhythm, edema, swelling of feet/ankles, syncope, dyspnea on exertion or orthopnea Resp: Denies: dyspnea, productive cough, non-productive cough or wheezing GI: Reports: nausea; Denies: abdominal pain or vomiting : Denies: flank pain, difficulty voiding, dysuria, urinary frequency or urinary urgency Skin/Breast: Denies: rash or pruritus PFSH ED PFSH: Medical History Diabetes Diagnosed in 2008 and controlled with medications. History of pulmonary embolism Had a PE in 2016-no known cause and has been on Xarelto since then. This is being managed by her primary care provider. Saddle embolism. Hypertension Diagnosed in 2008 and symptoms are being managed by a primary care provider. Surgical History Hx of tubal ligation (~2005) Done after the of her last child. Status post colonoscopy (10/07/21) Status post hysterectomy (09/16/20) TVH, BSO, USLS, SIS sling, perineorrhaphy. Performed by Dr. Rodriguez and Dr. Moeller at [facility] in [place], [place]. Family History Mother , AT AGE 78 Diabetes Heart disease Hypercholesteremia Hypertension Sister Diabetes Hypercholesteremia Hypertension Brother Diabetes Father , UNKNOWN AGE Heart disease Social History Smoking and tobacco status: former smoker Alcohol intake: former Marital status: Life Partner Current occupational status: unemployed History of recent travel: No Physical Exam Const: COMMON NORMALS: no acute distress GENERAL APPEARANCE: cooperative and comfortable ORIENTATION/CONSCIOUSNESS: Yes awake, Yes oriented to person, Yes oriented to place and Yes oriented to time HENMT: COMMON NORMALS: normocephalic, atraumatic and hearing grossly normal bilaterally HEAD & SCALP: normocephalic and atraumatic Eye: COMMON NORMALS: Equal, round and reactive pupils present, EOMs intact bilaterally, conjunctivae normal and no scleral icterus CONJUNCTIVA: Yes conjunctivae normal PUPIL: Yes Equal, round and reactive pupils present Neck/C-Spine: COMMON NORMALS: full ROM, no lymphadenopathy, supple and no JVD Lymph: LYMPHATIC: no lymphadenopathy noted and no lymphedema noted Resp: COMMON NORMALS: normal respiratory effort, No retractions, No use of accessory muscles and clear to auscultation bilaterally AUSCULTATION: clear to auscultation bilaterally Cardio: COMMON NORMALS: no JVD, regular rate, regular rhythm and No murmurs present (Cardio) RATE: regular rate RHYTHM: regular rhythm GI: COMMON NORMALS: Soft to palpation and No hepatosplenomegaly present AUSCULTATION: Yes normoactive bowel sounds PALPATION: Yes Soft to palpation, No Tenderness to palpation present (GI), No Guarding due to palpation present (GI) and Yes No hepatosplenomegaly present Extremity: COMMON NORMALS: normal to inspection, capillary refill normal, no clubbing, cyanosis or edema, no calf tenderness and no pedal edema Neuro: SENSORIUM/ORIENTATION: Yes oriented to person, Yes oriented to place and Yes oriented to time Skin: COMMON NORMALS: no rashes or lesions noted GENERAL SKIN EXAM: no rashes or lesions noted Course Vital Signs: Vital signs: Vital Signs Temperature 97.6 F 06/26/22 07:01 Pulse Rate 74 06/26/22 10:46 Respiratory Rate 16 06/26/22 10:46 Blood Pressure 110/61 06/26/22 10:46 Pulse Oximetry 91 06/26/22 10:46 Oxygen Delivery Me thod 06/26/22 10:46 MDM - Chest Pain Medical Decision Making Initial EKG shows no acute ST elevation. Normal sinus rhythm rate is 73. Labs imaging normal EKG does not show any acute ST changes patient is pain-free at this time. We will discharge patient home set up for outpatient Lexiscan sestamibi stress test continue current medications also encouraged her to take 81 mg aspirin daily. Medical Records I reviewed the patient's medical records. Lab Data I reviewed the patient's lab results. 06/26/22 07:14 06/26/22 07:14 Radiology Impressions Chest X-Ray 06/26/22 07:21 IMPRESSION: No acute cardiopulmonary abnormality. Laboratory Results WBC 4.4 10^3/uL (4.0-10.0) 06/26/22 07:14 RBC 5.36 10^6/uL (4.1-5.3) H 06/26/22 07:14 Hgb 16.1 g/dL (11.5-15.3) H 06/26/22 07:14 Hct 51.4 % (37.0-47.0) H 06/26/22 07:14 MCV 95.9 fl (81-99) 06/26/22 07:14 MCH 30.0 pg (28.0-34.0) 06/26/22 07:14 MCHC 31.3 g/dL (30.0-36.0) 06/26/22 07:14 RDW 13.7 % (12.1-15.1) 06/26/22 07:14 Plt Count 215 10^3/cmm (130-400) 06/26/22 07:14 MPV 11.0 fL (7.4-10.4) H 06/26/22 07:14 Neut % (Auto) 59.5 % 06/26/22 07:14 Lymph % (Auto) 31.3 % 06/26/22 07:14 [place] % (Auto) 6.6 % 06/26/22 07:14 Eos % (Auto) 1.4 % 06/26/22 07:14 Baso % (Auto) 0.7 % 06/26/22 07:14 Neut # (Auto) 2.63 10^3/uL (1.8-7.7) 06/26/22 07:14 Lymph # (Auto) 1.4 10^3/uL (0.8-4.8) 06/26/22 07:14 [place] # (Auto) 0.3 10^3/uL (0.2-0.9) 06/26/22 07:14 Eos # (Auto) 0.1 10^3/uL (0.0-0.8) 06/26/22 07:14 Baso # (Auto) 0.0 10^3/uL (0.0-0.1) 06/26/22 07:14 Nucleated RBC % (auto) 0 % 06/26/22 07:14 Nucleated RBCs # 0.0 /100WBC 06/26/22 07:14 Sodium 136 mmol/L (136-145) 06/26/22 07:14 Potassium 4.4 mmol/L (3.5-5.1) 06/26/22 07:14 Chloride 97 mmol/L (98-107) L 06/26/22 07:14 Carbon Dioxide 27 mmol/L (22-29) 06/26/22 07:14 Anion Gap 16.4 (5-19) 06/26/22 07:14 BUN 19 mg/dL (6-20) 06/26/22 07:14 Creatinine 0.6 mg/dL (0.5-0.9) 06/26/22 07:14 GFR Calculation 103.8 mL/min (90-130) 06/26/22 07:14 Glucose 157 mg/dL (65-115) H 06/26/22 07:14 Calculated Osmolality 288 mOsm/kg (285-295) 06/26/22 07:14 Calcium 9.3 mg/dL (8.5-10.5) 06/26/22 07:14 Total Bilirubin 0.5 mg/dL (0.15-1.2) 06/26/22 07:14 AST 15 U/L (0-32) 06/26/22 07:14 ALT 23 U/L (0-33) 06/26/22 07:14 Alkaline Phosphatase 100 U/L (35-105) 06/26/22 07:14 Troponin T Baseline 8 ng/L (0-10) 06/26/22 08:27 Troponin T 120 Minute 8.24 ng/L (0-10) 06/26/22 10:05 Delta Troponin T 0.24 ABS# (0-10) 06/26/22 10:05 Total Protein 7.0 g/dL (6.6-8.7) 06/26/22 07:14 Albumin 4.3 g/dL (3.5-5.2) 06/26/22 07:14 Globulin 2.7 g/dL (1.3-4.6) 06/26/22 07:14 Discharge Plan Discharge Patient Disposition: Home Clinical Impression: Atypical chest pain Condition: Stable Prescriptions: No Action glucosamine HCl 500 mg tablet 500 mg PO DAILY Rx Instructions: administer with meals omega-3 fatty acids [Fish Oil Concentrate] 1,000 mg capsule 1,000 mg PO DAILY ascorbate calcium (vitamin C) 500 mg tablet 500 mg PO DAILY magnesium oxide 400 mg (241.3 mg magnesium) tablet 800 mg PO DAILY Vitamin B-12 50 mcg tablet 500 mcg PO DAILY zinc 50 mg tablet 50 mg PO DAILY diclofenac sodium 3 % gel 1 applic topical BID Qty: 100 0RF Levemir FlexTouch U-100 Insuln 100 unit/mL (3 mL) insulin pen 19 unit SUBCUT DAILY Rx Instructions: Please dispense needle tips as well. lisinopril 5 mg tablet 5 mg PO DAILY Qty: 90 1RF Invokana 300 mg tablet 300 mg PO DAILY Qty: 90 1RF Xarelto 20 mg tablet 20 mg PO DAILY Qty: 90 1RF Rx Instructions: must administer with evening meal fluticasone propionate [Flonase Allergy Relief] 50 mcg/actuation spray,suspension 1 spray intranasal DAILY Qty: 16 0RF Rx Instructions: administer into each nostril fluticasone propionate [Flonase Allergy Relief] 50 mcg/actuation spray,suspension 2 spray intranasal DAILY Qty: 16 0RF Rx Instructions: administer into each nostril silver sulfadiazine [Silvadene] 1 % cream 1 applic topical BID Qty: 50 0RF Rx Instructions: apply a 1.5 mm thickness doxycycline hyclate 100 mg capsule 100 mg PO Q12H 5 Days Qty: 10 0RF benzonatate 200 mg capsule 200 mg PO BID PRN (Reason: cough) Qty: 14 0RF (DME) pen needle, diabetic [TechLITE Pen Needle] 32 gauge x 1/4 needle See Rx Instructions .Route Qty: 100 1RF Rx Instructions: As directed (DME) Contour Next Test Strips Strip See Rx Instructions .Route Qty: 100 1RF Rx Instructions: As directed (DME) blood-glucose meter Misc See Rx Instructions .ROUTE .MEDSUPPLY Qty: 1 0RF Rx Instructions: As directed to test glusoce 3 times daily. (DME) Blood Glucose Test Strip See Rx Instructions .ROUTE .MEDSUPPLY Qty: 50 2RF Rx Instructions: As directed to test 3 times a day (DME) lancets 25 gauge misc See Rx Instructions .ROUTE .MEDSUPPLY Qty: 100 2RF Rx Instructions: As directed to test glucose 3 times daily. terbinafine HCl 250 mg tablet 250 mg PO DAILY 30 Days Qty: 30 0RF oxybutynin chloride 5 mg tablet See Rx Instructions .ROUTE .COMPLEX Qty: 120 3RF Dose Instruction: TAKE 2 TABLET BY MOUTH TWICE DAILY Rx Instructions: TAKE 2 TABLET BY MOUTH TWICE DAILY Trulicity 1.5 mg/0.5 mL pen injector See Rx Instructions .ROUTE .COMPLEX Qty: 4 0RF Dose Instruction: INJECT 0.5ML SUB-Q WEEKLY Rx Instructions: INJECT 0.5ML SUB-Q WEEKLY aspirin 81 mg Tablet 81 mg PO DAILY potassium 99 mg Tablet 99 mg PO DAILY Discharge Orders: Discharge ED (Routine); Ordered 06/26/22 Ordered By: Wilber Juan Referrals: Remedios Russ DO [Primary Care Provider] - Patient Instructions: Opioid Safety, Pain Management Activity Restrictions/Additional Instructions: Your evaluation emergency room was negative for acute coronary syndrome your cardiac enzymes and EKGs are unremarkable. We will set you up for an outpatient Lexiscan sestamibi stress test. If you have worsening symptoms return. Continue to take baby aspirin daily. Coding Level of Care Code ED Language Interpreter for Tobin Álvarez Exam Comprehensive
[2022-06-26 07:35] VITALS: BP 120/77; PULSE 83; RESP 14; O2SAT 100
[2022-06-26 07:38] LABS: Basophils % 0.7 %; Eosinophils # 0.1 10^3/uL (0.0-0.8); Eosinophils % 1.4 %; Hematocrit 51.4 % (37.0-47.0); Hemoglobin 16.1 g/dL (11.5-15.3); Lymphocytes # 1.4 10^3/uL (0.8-4.8); Lymphocytes % 31.3 %; Mean Corpuscular HGB Conc 31.3 g/dL (30.0-36.0); Mean Corpuscular Volume 95.9 fl (81-99); Monocytes # 0.3 10^3/uL (0.2-0.9); Monocytes % 6.6 %; Neutrophils # 2.63 10^3/uL (1.8-7.7); Neutrophils % 59.5 %; Nucleated Red Blood Cells % 0 %; Platelet Count 215 10^3/cmm (130-400); Red Blood Count 5.36 10^6/uL (4.1-5.3); Red Cell Distribution Width 13.7 % (12.1-15.1); White Blood Count 4.4 10^3/uL (4.0-10.0)
[2022-06-26] MEDS: aspirin 81 mg Chew Tablet 324 MG PO (07:43)
--- NOTE | 2022-06-26 08:04 | ECG_ITS ---
[facility] Test Date: 2022-06-26 Pat Name: Christine Hutton Department: Room: Gender: Female Graphics Manager: : 1965 Requested By: Wilber Park Order Number: [id number] Lore MD: Suzi Elizabeth M.D. Measurements Intervals [place] Rate: 75 P: 70 TN: 129 QRS: 19 QRSD: 100 T: 2 QT: 376 QTc: 422 Interpretive Statements SINUS RHYTHM No previous ECG available for comparison Electronically Signed On 06-27-2022 19:46:38 GEAR GRINDER by Suzi Elizabeth M.D. [id number]
[2022-06-26 08:07] LABS: Alanine Aminotransferase 23 U/L (0-33); Albumin Level 4.3 g/dL (3.5-5.2); Alkaline Phosphatase 100 U/L (35-105); Aspartate Amino Transferase 15 U/L (0-32); Blood Urea Nitrogen 19 mg/dL (6-20); Calcium 9.3 mg/dL (8.5-10.5); Carbon Dioxide 27 mmol/L (22-29); Chloride 97 mmol/L (98-107); Globulin 2.7 g/dL (1.3-4.6); Glomerular Filtration Rate 103.8 mL/min (90-130); Glucose 157 mg/dL (65-115); Osmolality Calculated 288 mOsm/kg (285-295); Sodium 136 mmol/L (136-145); Total Bilirubin 0.5 mg/dL (0.15-1.2)
[2022-06-26 08:13] LABS: Anion Gap 16.4 (5-19); Potassium 4.4 mmol/L (3.5-5.1)
[2022-06-26 08:49] VITALS: BP 106/58; PULSE 72; RESP 14; O2SAT 94
[2022-06-26 09:05] LABS: Troponin(5th) Baseline 8 ng/L (0-10)
[2022-06-26 09:25] VITALS: BP 100/60; PULSE 77; RESP 14; O2SAT 92
--- NOTE | 2022-06-26 09:35 | ECG_ITS ---
[facility] Test Date: 2022-06-26 Pat Name: Christine Hutton Department: Room: Gender: Female Candy Cooker Helper: : 1965 Requested By: Wilber Park Order Number: [id number] Lore MD: Suzi Elizabeth M.D. Measurements Intervals [place] Rate: 68 P: 72 [place]: 126 QRS: 31 QRSD: 97 T: 16 QT: 395 QTc: 422 Interpretive Statements SINUS RHYTHM LOW QRS VOLTAGE IN PRECORDIAL LEADS [QRS DEFLECTION < 1.0 mV IN CHEST LEADS] POSSIBLE ANTERIOR MYOCARDIAL INFARCTION , OF INDETERMINATE AGE [30 ms Q WAVE IN V3/V4, OR R < 0.2 mV IN V4] Compared to ECG 06/26/2022 08:04:49 Low QRS voltage now present Myocardial infarct finding now present Electronically Signed On 06-27-2022 20:16:33 YOUTH MANAGER by Suzi Elizabeth M.D. [id number]
[2022-06-26 10:33] LABS: Troponin 5 2HR 8.24 ng/L (0-10)
[2022-06-26 10:46] VITALS: BP 110/61; PULSE 74; RESP 16; O2SAT 91
[2022-06-26 11:14] LABS: Troponin 5 2HR Delta 0.24 ABS# (0-10)
--- NOTE | 2022-08-05 07:58 | DCPLANNER ---
Addendum entered by Svetlana Templeton 09/01/22 15:33: Patient had a stress test scheduled - patient did attend appointment Original Note: mid level project manager had message to schedule an outpatient stress test for patient. mid level project manager faxed signed order to centralized scheduling, who will call patient with appointment information. mid level project manager sent notification to patients primary care physician, Dr. Russ, that a stress test was ordered out of the ER.
== END 2022-06-26 11:29 | disposition home or self-care (01) ==
PROVIDERS: Emergency Provider Family Medicine; PCP Family Medicine
DX: R07.89 Other chest pain (principal); Z79.82 Long term (current) use of aspirin; Z79.85 Long-term (current) use of injectable non-insulin antidiabetic drugs; Z79.4 Long term (current) use of insulin; E11.9 Type 2 diabetes mellitus without complications; I10 Essential (primary) hypertension; Z87.891 Personal history of nicotine dependence
CPT/HCPCS: 71045; 80053; 84484; 85025; 93005; 99285

== ENCOUNTER 2022-08-09 06:24 | Outpatient (CLI) | payer BC, MEDICAID, SELFPAY ==
--- NOTE | 2022-08-09 | ECG_ITS ---
[facility] Test Date: 2022-08-09 Pat Name: Christine Hutton Department: Room: Gender: Female Registered Massage Therapist: : 1965 Requested By: Wilber Park Order Number: [id number] Lore MD: Dimitrios Storm M.D. Interpretive Statements NAME OF STUDY: LEXISCAN SESTAMIBI STRESS TEST INDICATION: [Atypical Chest Pain, ] Procedure: At the baseline, the blood pressure was 112/70 mmHg with a heart rate of 76 bpm. The electrocardiogram showed normal sinus rhythm, normal axis with normal ST and T's. The Lexiscan was infused over a period of 20 seconds. A total of 0.4 mg of Lexiscan was infused. The stress phase was continued for a total of 5 minutes. Heart rate was at the end of stress phase was 95 bpm and a blood pressure of 116/53 mmHg. The EKG at the peak infusion revealed normal sinus rhythm with no significant ST-T wave changes. Sestamibi was injected 20 seconds after the Lexiscan infusion. Blood pressure at the end of recovery phase was 100/55 mmHg with a heart rate of 95 bpm. Conclusion: 1. Normal EKG response to Lexiscan infusion 2. No Lexiscan induced chest pain or cardiac arrhythmia. 3. Normal blood pressure and heart rate response. 4. Sestamibi/sestamibi perfusion scan pending; see separate report. Electronically Signed On 08-21-2022 18:37:52 ACCOUNT OFFICER by Dimitrios Storm M.D. [id number]
[2022-08-09 07:00] VITALS: BMI 39.5
--- NOTE | 2022-08-09 07:46 | NMCV_ITS ---
NM kevin perf SPECT r/s* [id number] Christine Hutton Age: 56 Gender: F : 1965 Exam Date: 08/09/2022 07:50 Ordering Phys: Wilber Juan DO Technologist: TREY Gutierres Exam Location: [facility] Indications: CHEST PAIN STRESS TEST Please see separate stress test report in [facility] for full findings IMAGE PROTOCOL Rest/Stress 1 Lexiscan Day Radiopharmaceutical Dose (mCi) Administration Site Administered by Rest: Tc-99m 10.9 IV TREY Perez Sestamibi Stress:Tc-99m 32.7 IV TREY Perez Sestamibi Rest: 09-Aug-2022 60 Discovery 630 Stress: 09-Aug-2022 30 Discovery 630 0.4mg Lexiscan. Images obtained in supine and prone position. SPECT RESULTS Technical Quality: Excellent Raw Data Analysis: Normal Image Corrections: No attenuation or motion correction applied Summed Stress Score: 5 Summed Rest Score: 0 Summed Difference Score: 5 PERFUSION FINDINGS There is a medium sized area of reversible perfusion defect noted in the inferior and inferolateral [place]. This is consistent with ischemia in the RCA and left circumflex artery territories. FUNCTIONAL RESULTS (calculated via Gated SPECT) Stress Image LV EF (%): 74 Stress EDV (mL):80 TID: 0.91 Stress ESV (mL):21 FUNCTIONAL FINDINGS: There is normal left ventricular systolic function. IMPRESSIONS 1. Abnormal myocardial perfusion imaging with medium sized area of ischemia noted in the RCA and Left circumflex artery territory. 2. LV systolic function is normal Dimitrios Storm MD (Electronically Signed) Final Date: 09 August 2022 11:59 S
[2022-08-09] MEDS: regadenoson 0.4 Mg/5 ml Syringe IVP (08:53)
[2022-08-09 09:02] VITALS: BP 100/55; PULSE 98
== END 2022-08-09 06:25 | disposition home or self-care (01) ==
LOC: CDL 06:26
PROVIDERS: PCP Family Medicine; Visit Provider Family Medicine
DX: R07.89 Other chest pain (principal)
CPT/HCPCS: 36415; 78452; 93017; 96374; A9500; J2785

== ENCOUNTER → 2022-08-24 09:42 | Outpatient (BNVA) | payer BC, MEDICAID, SELFPAY | PROVIDERS: PCP Family Medicine; Visit Provider Family Medicine | DX: Z79.4 Long term (current) use of insulin (principal); E11.9 Type 2 diabetes mellitus without complications | CPT/HCPCS: 80053; 83036 ==

== ENCOUNTER 2022-10-27 12:33 | Outpatient (CLI) | payer BC, MEDICAID, SELFPAY ==
--- NOTE | 2022-10-27 12:15 | USCV_ITS ---
Brennen Christine Age: 57 Gender: F : 1965 Exam Date: 10/27/2022 13:10 Ordering Phys: Suzi Elizabeth MD ([email or web address]) Technologist: MARY ANNE Exam Location: [facility] Indication: MURMUR BP: 134 / 68 HR: 77 Rhythm: Sinus Technical Quality: Adequate MEASUREMENTS (Male / Female) Normal Values 2D ECHO LVOT Diameter 2.0 cm LV Ejection Fraction MOD 2C 52.5 % LV Ejection Fraction 2C AL 49.1 % LA Diameter 2.9 cm LA Width 2.7 cm LA Height 4.7 cm RA Width 3.3 cm RA Height 3.3 cm Aorta at Sinotubular Diameter 1.9 cm IVC Diameter 1.6 cm M-MODE Aortic Annulus Diameter 2.4 cm LA Ao Ratio MM 1.1 MV E Point Septal Separation 0.7 cm DOPPLER AV Peak Velocity 137.0 cm/s LVOT Peak Velocity 97.0 cm/s AV Area Cont Eq vti 2.1 cm squared AV Area Cont Eq pk 2.2 cm squared MV Peak Velocity 101.0 cm/s MV Area PHT 3.7 cm squared Mitral E to A Ratio 0.9 MV E' Velocity 52.5 cm/s Mitral E to MV E' Ratio 6.6 Mitral E to LV E' Lateral Ratio 5.4 Mitral E to LV E' Septal Ratio 8.6 TR Peak Velocity 168.2 cm/s TR Peak Gradient 11.3 mmHg TR Mean Velocity 139.3 cm/s TR Mean Gradient 7.8 mmHg TR Velocity Time Integral 44.7 cm TV Peak E Velocity 72.0 cm/s Right Atrial Pressure 3.0 mmHg Pulmonary Artery Systolic Pressu 14.3 mmHg PV Peak Velocity 97.0 cm/s RV Acceleration Time 0.1 s RV Ejection Time 0.3 s RV AcT/ET 0.3 FINDINGS Left Ventricle Normal left ventricular size and systolic function, EF 55 %. No regional wall motion abnormalities. Grade I/IV diastolic dysfunction (abnormal relaxation filling pattern), normal to mildly elevated filling pressures. Right Ventricle The right ventricle is normal in size and function. Right Atrium The right atrium is normal in size. Left Atrium The left atrium is normal in size. Mitral Valve No gross abnormalities noted Aortic Valve Thickened aortic valve. Tricuspid Valve Trace tricuspid valve regurgitation. Estimated pulmonary artery peak systolic pressure within normal limits Pulmonic Valve No gross abnormalities noted Pericardium Normal pericardium without effusion. Aorta Normal ascending aorta dimension. IVC The inferior vena cava appears normal. CONCLUSIONS Normal left ventricular size and systolic function, EF 55 %. No regional wall motion abnormalities. Grade I/IV diastolic dysfunction (abnormal relaxation filling pattern), normal to mildly elevated filling pressures. Thickened aortic valve. Trace tricuspid valve regurgitation. Estimated pulmonary artery peak systolic pressure within normal limits There is no pericardial effusion. There are no intracardiac masses. No similar previous studies are available for comparison Dr Suzi Elizabeth MD [facility] (Electronically Signed) Final Date: 28 Oct 2022 10:11 S
== END 2022-10-27 12:34 | disposition home or self-care (01) ==
PROVIDERS: PCP Family Medicine; Visit Provider Internal Medicine Cardiovascular Disease
DX: R06.09 Other forms of dyspnea (principal); I35.8 Other nonrheumatic aortic valve disorders
CPT/HCPCS: 93306

== ENCOUNTER → 2022-11-02 11:14 | Outpatient (BNVA) | payer BC, MEDICAID, SELFPAY | PROVIDERS: PCP Family Medicine; Referring Provider Family Medicine; Visit Provider Orthopaedic Surgery | DX: M77.12 Lateral epicondylitis, left elbow (principal) | CPT/HCPCS: 73080 ==

== ENCOUNTER 2022-11-26 13:43 | Observation (INO) | payer BC, MEDICAID, SELFPAY ==
--- NOTE | 2022-11-26 11:00 | XACV_ITS ---
Exam Room: 2 Ht: 165 cm Wt: 115 kg BSA: 2.35 m2 Gender: Female : 1965 Exam Priority: Routine Procedure(s): Procedure Description: Diagnostic procedure Procedure Description: Left Heart Catheterization Procedure Description: Left ventriculography Procedure Description: Coronary Angiography Diagnostic Cath Status: Elective Diagnostic Findings * INDICATION: 57-year-old woman with past medical history of pulmonary embolism on Xarelto, hypertension who has been having on and off chest pain. Had significant episode in June and since then the frequency increased. She had a stress test that is showing medium sized area of ischemia in left circumflex/RCA territories. Plan for coronary angiogram with possible percutaneous coronary intervention. Risks and benefits of the procedure have been discussed with the patient. She understands the risks and wants to proceed with it. * No significant disease noted in the Left Main, Left Anterior Descending, Right, or Circumflex coronary arteries. * Coronary angiography shows right dominance. Conclusions 1. No significant disease noted in the Left Main, Left Anterior Descending, Right, or Circumflex coronary arteries. 2. Normal left ventricular systolic function. Ejection fraction of 55%. Recommendations * Aggressive risk factor modification. * Can start on Imdur for microvascular dysfunction. * Outpatient cardiology follow up in 4 weeks. Interventional RX Recommendation: medical therapy and/or counseling Diagnostic RX Recommendation: medical therapy and/or counseling Anticoagulation: Heparin Ventriculography Ejection Fraction: 55.0 % Pressures Phase:Rest AO : 90 / 75 ( 83 ) @ 1:37:00 PM 125 / 73 ( 95 ) @ 1:41:00 PM 127 / 73 ( 97 ) @ 1:41:00 PM LV : 124 / 1 / 21 @ 1:40:00 PM 126 / 0 / 22 @ 1:41:00 PM 126 / 0 / 22 @ 1:41:00 PM Valves Phase:DefaultPhase AV : 1.0 @ 12:45:47 PM 1.0 @ 12:45:47 PM AV Mean Gradient: 0.0 @ 12:45:47 PM 0.0 @ 12:45:47 PM Clinical Evaluation EBL: 5mL-10mL Procedural Details Procedure Consent Obtained. Admit Source: Out Patient. Pre-Procedure Time Out. Identified patient by full name and date of as verbalized by the patient/guarantor. Does the consent match the physician's order: Yes. Accurate & Complete Informed Consent: Yes. Inpatient/Outpatient History & Physical on Chart: Yes. If H&P is completed, is and addenduem needed: Yes; If yes, is the addendum complete: Yes. Visualize and Verify Site with Patient/Guarantor: N/A. Relevant Radiology Images available: N/A. Pre-op teaching completed and patient verbalized understanding. The risks, benefits, and alternatives of sedation and/or procedure were discussed by physician. The patient agrees to continue. Procedure started. [facility] Clinical Fraility Score: 2: Well. Global Mobility Specialist Indications: New Onset Angina. Chest Pain Symptom Assessment: Typical Angina Symptoms. Correct patient, site and procedure confirmed by cath team. Current diagnosis: Chest Pain. PERRLA. 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 Lungs clear x 5 lobes. IV Site on Arrival: 20 gauge in the left anticubital. IV Fluids: 0.9% NaCl at KVO. 0 mL infused prior to cathode builder. Pre Procedural Pulses: right radial was 3+. Pre Procedural Pulses: bilateral dorsalis pedis was 1+. Oxygen started at 2liters/min via nasal canula. right groin was prepped with chloroprep then draped in the usual sterile fashion. right radial was prepped with chloroprep then draped in the usual sterile fashion. Baseline sample Acquired. HR: 63 BPM. Physician notified. Physician arrived. Physician scrubbed in. Immediate Pre-Procedure Time Out. Correct Patient: Yes; Correct Procedure: Yes; Correct Site: Yes; Correct Patient Position: Yes; Correct Supplies: Yes; Dried Flammable Prep: Yes; Blood Products Available: N/A;. Lidocaine 1% infiltrated to the right radial. Arterial access obtained. A 5 welsh TIG catheter in over wire. Multiple views taken of left coronary artery. Catheter redirected to the RCA. Multiple views taken of right coronary artery. Catheter out. A 5 welsh Angled Pig catheter in over wire. EDP Sample taken: LV 124/1,21; HR: 78 BPM; SpO2: 96%. LV gram performed in JIMÉNEZ @ 10 mL/second for a total of 30 mL. EDP Sample taken: LV 126/0,22; HR: 81 BPM; SpO2: 98%. Pullback taken: LV 126/0,22; AO 125/73(95); Mean: 0mmHg, Peak to Peak: 1mmHg, SEP: 20sec/min; HR: 80 BPM; SpO2: 98%. Physician review of cine films. A TR Band was successful obtaining hemostatsis at the Right Radial artery insertion site. Post Procedure: Pulses reassessed and unchanged. PERRLA. 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 No VTE prophylaxis required. Medication's Wasted: Other = Versed 1 mg. Medication's Wasted: Other = Fentanyl 50 mcg. Medication's Wasted: Lidocaine 1% = 1 mL. Medication's Wasted: Nitro = 49.8 mg. Medication's Wasted: Heparin = 1000 u. Total IV fluids: 20 mL. Post-op diagnosis: Non Obstructive CAD. Complications: none. Estimated blood loss: 5mL-10mL. Responsiveness - Normal response to verbal stimuli; alert and oriented, PERRLA. Airway - Unaffected, no intervention required; spontaneous ventilation. Circulation: W/N/L, pulses unchanged. Nausea/Vomiting: No. Procedure completed. Patient transferred by wheelchair to 1st floor. Vital chart was stopped. Access Site Site: Right Radial artery Sheath Size: 6 Fr Hemostasis Method: TR Band Hemostasis Success: Successful Procedure Medications Start: 12:29 PM Stop: 12:29 PM Medication: Versed Amount: 1 mg Route: I.V. Start: 12:29 PM Stop: 12: PM Medication: Fentanyl Amount: 50 mcg Route: I.V. Start: 12:33 PM Stop: 12:33 PM Medication: Nitrogylcerin Amount: 200 mcg Route: I.A. Start: 12:34 PM Stop: 12:34 PM Medication: Heparin Amount: 5000 units Route: I.V. I, the attending physician, have reviewed and verified all procedure medications. Yes, all medications given per verbal order History/Risk Factors Hypertension: Yes Dyslipidemia: No Peripheral Arterial Disease (PAD): No Myocardial Infarction (TX): No Obesity: No Renal Disease: No Tobacco Use: Former Prior Interventions PCI: No CABG: No Valve Surgery: No Report Signatures Finalized by Dimitrios Storm MD on 11/28/2022 05:12 PM
[2022-11-26] MEDS: diphenhydrAMINE 50 mg Capsule PO (11:15)
[2022-11-26 11:28] LABS: Basophils % 0.4 %; Eosinophils % 0.5 %; Hematocrit 52.2 % (37.0-47.0); Hemoglobin 16.6 g/dL (11.5-15.3); Lymphocytes # 1.5 10^3/uL (0.8-4.8); Lymphocytes % 27.4 %; Mean Corpuscular HGB Conc 31.8 g/dL (30.0-36.0); Mean Corpuscular Hemoglobin 29.9 pg (28.0-34.0); Mean Corpuscular Volume 94.1 fl (81-99); Mean Platelet Volume 10.5 fL (7.4-10.4); Monocytes # 0.3 10^3/uL (0.2-0.9); Monocytes % 5.3 %; Neutrophils # 3.72 10^3/uL (1.8-7.7); Nucleated Red Blood Cells % 0 %; Platelet Count 222 10^3/cmm (130-400); Red Blood Count 5.55 10^6/uL (4.1-5.3); Red Cell Distribution Width 13.5 % (12.1-15.1); White Blood Count 5.6 10^3/uL (4.0-10.0)
[2022-11-26 11:36] LABS: Glucose Point of Care 164 mg/dL (70-110)
[2022-11-26 11:42] VITALS: BP 113/81; PULSE 84; RESP 18; TEMP 37.2; O2SAT 97; BMI 40.8
[2022-11-26 11:45] LABS: Anion Gap 15.2 (5-19); Blood Urea Nitrogen 19 mg/dL (6-20); Calcium 9.5 mg/dL (8.5-10.5); Carbon Dioxide 27 mmol/L (22-29); Chloride 101 mmol/L (98-107); Glomerular Filtration Rate 86.6 mL/min (90-130); Glucose 154 mg/dL (65-115); Osmolality Calculated 293 mOsm/kg (285-295); Potassium 4.2 mmol/L (3.5-5.1); Sodium 139 mmol/L (136-145)
--- NOTE | 2022-11-26 12:19 | W.PM.OPSFHP ---
Same Day Surgery H&P Indication for Procedure/HPI DATE OF PROCEDURE: November 26, 2022 CHIEF COMPLAINT/INDICATIONFOR SURGICAL PROCEDURE: Chest pain/ abnormal stress test PREOP DIAGNOSIS: Chest pain/ abnormal stress test PLANNED PROCEDURE: Operation Date: 11/26/22 12:00 Proposed Procedures p [facility] w/- W/o 63616,R94.39, E78.5(Left) - Dimitrios Storm M.D Possible percutaneous coronary intervention 57-year-old woman with past medical history of pulmonary embolism on Xarelto, hypertension who has been having on and off chest pain. Had significant episode in June and since then the frequency increased. She had a stress test that is showing medium sized area of ischemia in left circumflex/RCA territories. Plan for coronary angiogram with possible percutaneous coronary intervention. Risks and benefits of the procedure have been discussed with the patient. She understands the risks and wants to proceed with it. Medications/Allergies* Home Medications Medication Instructions Recorded Confirmed Type glucosamine HCl 500 mg tablet 500 mg PO DAILY 05/21/20 11/25/22 History omega-3 fatty acids 1,000 mg 1,000 mg PO DAILY 05/21/20 11/25/22 History capsule (Fish Oil Concentrate) aspirin 81 mg tablet 81 mg PO DAILY 07/14/20 11/25/22 History potassium 99 mg tablet 99 mg PO DAILY 09/16/20 11/25/22 History magnesium oxide 400 mg (241.3 mg 800 mg PO DAILY 11/10/20 11/25/22 History magnesium) tablet cyanocobalamin (vitamin B-12) 50 500 mcg PO DAILY 08/20/21 11/25/22 History mcg tablet (Vitamin B-12) Allergies/Adverse Reactions Allergy/AdvReac Type Severity Reaction Status Date / Time Penicillins Allergy unknown Verified 11/26/22 11:39 reaction--mother told her she was allergic Current Medications: Generic Name Dose Route Start Last Admin Trade Name Freq PRN Reason Stop Dose Admin Sodium Chloride 1,000 mls @ 50 mls/hr 11/26/22 11:00 11/26/22 11:15 Sodium Chloride 0.9% IV 11/27/22 06:59 Not Given .Q20H ONE Pertinent History/Comorbid Conditions* Medical History (Updated 10/22/22 @ 10:52 by Remedios Russ DO) Diabetes Diagnosed in 2008 and controlled with medications. History of pulmonary embolism Had a PE in 2016-no known cause and has been on Xarelto since then. This is being managed by her primary care provider. Saddle embolism. Hypertension Diagnosed in 2008 and symptoms are being managed by a primary care provider. Surgical History (Updated 07/15/22 @ 13:33 by Damian Walker DPM) Hx of tubal ligation (~2005) Done after the of her last child. Status post colonoscopy (10/07/21) Status post hysterectomy (09/16/20) TVH, BSO, USLS, SIS sling, perineorrhaphy. Performed by Dr. Rodriguez and Dr. Moeller at [facility] in [place], [place]. Family History (Updated 05/21/20 @ 09:12 by Domitila Christianson) Father, UNKNOWN AGE Mother, AT AGE 78 Diabetes Mother Sister Brother Heart disease Mother Father Hypercholesteremia Mother Sister Hypertension Mother Sister Social History Smoking and tobacco status: former smoker Alcohol intake: former Substance/Drug Use: never Marital status: Life Partner Current occupational status: unemployed Pertinent Exam Findings alert, oriented x 3, clear to auscultation bilaterally and regular rate & rhythm Conscious Sedation Assessment PATIENT ASSESSED PRIOR TO SEDATION, WITH NO CHANGE NOTED: Yes AIRWAY EVAL/ANESTHESIA PLAN: normal airway, ASA III, Local Anesthesia, Risks, benefits & alternatives of sedation and/or procedure discussed and Patient agrees to continue as planned ADDITIONAL INFORMATION: Moderate sedation Recommendations Surgery/Procedure today (Left heart cath with possible percutaneous coronary intervention) Coding Level of Care Code Acute Code for Chg Fwd Diagnoses
--- NOTE | 2022-11-26 13:00 | PC.NURSE ---
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 Patient has T-R Band in place with 15 mL of air. No hematoma present.
[2022-11-26 15:59] VITALS: BP 89/60; PULSE 93; RESP 21; TEMP 36.7; O2SAT 93
--- NOTE | 2022-11-26 18:15 | PC.NURSE ---
Discharge education provided and reviewed with patient and patient's spouse. Education on new medication prescribed reviewed with patient. Angiogram site not bleeding, no hematoma present and covered with a 2x2 and a transparent dressing. IV removed and patient discharged home in wheelchair.
== END 2022-11-26 18:15 | disposition home or self-care (01) ==
LOC: CSU 13:43
PROVIDERS: Admitting Provider Internal Medicine; PCP Family Medicine; Visit Provider Internal Medicine
DX: R94.39 Abnormal result of other cardiovascular function study (principal); R07.9 Chest pain, unspecified; E78.5 Hyperlipidemia, unspecified; Z86.711 Personal history of pulmonary embolism; Z79.01 Long term (current) use of anticoagulants; I10 Essential (primary) hypertension; Z79.82 Long term (current) use of aspirin; Z87.891 Personal history of nicotine dependence
CPT/HCPCS: 36415; 36416; 80048; 82962; 85025; 93458; 96365; 99152; C1769; C1887; C1894; G0378; J1644; J2250; J3010; J3490; J7030; Q0163; Q9967

== ENCOUNTER → 2022-12-06 11:58 | Outpatient (BNVA) | payer BC, MEDICAID, SELFPAY | PROVIDERS: PCP Family Medicine; Visit Provider Nurse Practitioner Family | DX: I10 Essential (primary) hypertension (principal) | CPT/HCPCS: 36415; 80048 ==

== ENCOUNTER → 2022-12-10 12:53 | Outpatient (BNVA) | payer BC, MEDICAID, SELFPAY | PROVIDERS: PCP Family Medicine; Visit Provider Family Medicine | DX: E11.9 Type 2 diabetes mellitus without complications (principal); Z79.4 Long term (current) use of insulin | CPT/HCPCS: 82043; 83036 ==

== ENCOUNTER → 2023-03-14 11:58 | Outpatient (BNVA) | payer BC, MEDICAID, SELFPAY | PROVIDERS: PCP Family Medicine; Visit Provider Family Medicine | DX: E11.9 Type 2 diabetes mellitus without complications (principal); Z79.4 Long term (current) use of insulin | CPT/HCPCS: 80053; 80061; 83036 ==

== ENCOUNTER → 2023-09-08 13:06 | Outpatient (BNVA) | payer BC, MEDICAID, SELFPAY | PROVIDERS: PCP Family Medicine; Visit Provider Family Medicine | DX: E11.9 Type 2 diabetes mellitus without complications (principal); E78.5 Hyperlipidemia, unspecified; Z79.4 Long term (current) use of insulin | CPT/HCPCS: 80053; 80061; 83036 ==

== ENCOUNTER → 2023-12-05 13:48 | Outpatient (BNVA) | payer BC, MEDICAID, SELFPAY | PROVIDERS: PCP Family Medicine; Visit Provider Family Medicine | DX: E11.9 Type 2 diabetes mellitus without complications (principal); Z79.4 Long term (current) use of insulin | CPT/HCPCS: 80048; 83036 ==

== ENCOUNTER → 2024-03-15 14:15 | Outpatient (BNVA) | payer BC, MEDICAID, SELFPAY | PROVIDERS: PCP Family Medicine; Visit Provider Family Medicine | DX: E11.42 Type 2 diabetes mellitus with diabetic polyneuropathy (principal) | CPT/HCPCS: 80053; 80061; 83036; 85025 ==

== ENCOUNTER → 2024-09-04 09:49 | Outpatient (BNVA) | payer BC, MEDICAID, SELFPAY | PROVIDERS: PCP Family Medicine; Visit Provider Family Medicine | DX: R05.8 Other specified cough (principal); E11.9 Type 2 diabetes mellitus without complications; Z79.4 Long term (current) use of insulin | CPT/HCPCS: 80053; 83036 ==

== ENCOUNTER → 2025-02-28 14:42 | Outpatient (BNVA) | payer BC, MEDICAID, SELFPAY | PROVIDERS: PCP Family Medicine; Visit Provider Family Medicine | DX: I10 Essential (primary) hypertension (principal); E11.9 Type 2 diabetes mellitus without complications; Z79.4 Long term (current) use of insulin | CPT/HCPCS: 80053; 80061; 83036; 85025 ==